=== PATIENT | male | born 1985 | race Caucasian/White ===

== ENCOUNTER 2017-12-08 18:21 | Emergency (ER) | payer OTHER ==
[~2017-12-08] VITALS: Ht 182.9 cm; Wt 65.8 kg
--- NOTE | ~2017-12-08 | EKG ---
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[facility] : 1985 Requested By: Olga Aguirre Order Number: [id number] MD: Agustín Harris Measurements Intervals [place] Rate: 97 P: 68 WY: 128 QRS: 81 QRSD: 87 T: 57 QT: 322 QTc: 409 Interpretive Statements Sinus rhythm ST elev, probable normal early repol pattern Compared to ECG 11/06/2017 00:58:37 No significant changes Electronically Signed On 12-09-2017 9:17:43 CDT by Agustín Harris [email or web address] <ELECTRONICALLY SIGNED> By: Agustín Harris MD, [facility] 12/09/17 0917 1840 1840 Agustín Harris MD, FACC /EPI
[~2017-12-08 18:21] MED LIST: ATIVAN0.5 MG PO; NOHOMEMEDICATIONS; ONDANSETRON HCL4 M2 PO; VENTOLIN HFA 1818 GM INH
[2017-12-08 18:26] VITALS: BP 155/105
[2017-12-08] MEDS ORDERED: ATIVAN0.5 MG PO (18:36)
== END 2017-12-08 18:59 | disposition home or self-care (01) ==
LOC: ER 18:21
DX: F41.0 Panic disorder [episodic paroxysmal anxiety] (principal); F17.210 Nicotine dependence, cigarettes, uncomplicated; Z76.0 Encounter for issue of repeat prescription

== ENCOUNTER 2019-03-12 19:54 | Emergency (ER) | payer OTHER ==
[~2019-03-12] VITALS: Ht 182.9 cm; Wt 68.0 kg
[2019-03-12] MEDS ORDERED: ATIVAN0.5 MG PO (20:17)
[2019-03-12 21:07] VITALS: BP 138/82
--- NOTE | 2019-03-13 08:06 | EKG ---
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 : 1985 Requested By: Breana Jacome Order Number: [id number] MD: Agustín Hraris Measurements Intervals [place] Rate: 102 P: 90 MT: 120 QRS: 85 QRSD: 87 T: -47 QT: 303 QTc: 395 Interpretive Statements Sinus tachycardia Nonspecific T abnormalities Compared to ECG 12/08/2017 18:40:09 Nonspecific change in the ST and T-wave segments Electronically Signed On 03-13-2019 8:06:15 CDT by Agustín Harris [email or web address] ��������������������������������������������� <ELECTRONICALLY SIGNED> ���������������������������������������� By: Agustín Harris MD, [facility] ��������������������������������������������� 03/13/19805 18 18 Agustín Harris MD, FACC /EPI
== END 2019-03-12 21:08 | disposition home or self-care (01) ==
LOC: ER 19:54
DX: F41.9 Anxiety disorder, unspecified (principal); F17.210 Nicotine dependence, cigarettes, uncomplicated

== ENCOUNTER 2019-10-01 21:17 | Emergency (ER) | payer OTHER ==
[~2019-10-01] VITALS: Ht 182.9 cm; Wt 68.0 kg
[2019-10-01 21:37] LABS: URINE BILIRUBIN NEGATIVE (Negative); URINE BLOOD NEGATIVE (Negative); URINE CLARITY CLEAR; URINE COLOR YELLOW; URINE GLUCOSE-RANDOM* NEGATIVE (Negative); URINE KETONES 1+ (Negative); URINE LEUKOCYTES-REFLEX NEGATIVE (Negative); URINE NITRITE-REFLEX NEGATIVE (Negative); URINE PROTEIN (DIPSTICK) NEGATIVE (Negative); URINE SPECIFIC GRAVITY <= 1.005 (1.005-1.035); URINE UROBILINOGEN 0.2 E.U./dl (0.2-1.0)
[2019-10-01 22:11] LABS: RDW 13.5 % (10.5-14.5)
[2019-10-01 22:13] LABS: HEMATOCRIT 53.2 % (42.0-52.0); HEMOGLOBIN 18.4 gm/dL (14.0-18.0); MCH 31.8 pg (26.0-34.0); MCHC 34.5 g/dL (28.0-37.0); MCV 92.1 fL (80.0-100.0); PLATELET COUNT 292 thou/uL (150-400); RBC 5.78 mil/uL (4.50-6.00); WBC 9.6 thou/uL (4.0-11.0)
[2019-10-01 22:19] LABS: CALCIUM 9.8 mg/dL (8.5-10.1); CREATININE 0.8 mg/dL (0.7-1.3); POTASSIUM 3.4 mmol/L (3.5-5.1)
[2019-10-01 22:23] LABS: PROTIME 10.1 Seconds (9.3-11.4)
[2019-10-01 22:25] LABS: ALBUMIN 4.3 g/dL (3.4-5.0); TOTAL BILIRUBIN 0.7 mg/dL (<0.1-1.0); TOTAL PROTEIN 8.4 g/dL (6.4-8.2)
[2019-10-01 22:44] VITALS: BP 141/88
[2019-10-01] MEDS ORDERED: OMEPRAZOLE 20 M20 M1 PO (22:49)
[2019-10-01 22:54] LABS: ABSOLUTE NEUTROPHILS 7.1 thou/uL (1.4-8.2)
[2019-10-01 22:55] LABS: ANISOCYTOSIS 1+
== END 2019-10-01 22:59 | disposition home or self-care (01) ==
LOC: ER 21:17
PROVIDERS: Physician Assistant
DX: F10.10 Alcohol abuse, uncomplicated (principal); R11.2 Nausea with vomiting, unspecified; R10.9 Unspecified abdominal pain; F17.210 Nicotine dependence, cigarettes, uncomplicated

== ENCOUNTER 2020-06-03 07:11 | Emergency (ER) | payer OTHER ==
[~2020-06-03] VITALS: Ht 182.9 cm; Wt 65.8 kg
[~2020-06-03 07:11] MED LIST changes: +OMEPRAZOLE 20 M20 M1 PO
[2020-06-03 08:50] VITALS: BP 159/92
== END 2020-06-03 09:04 | disposition home or self-care (01) ==
LOC: ER 07:11
DX: B34.9 Viral infection, unspecified (principal); H92.02 Otalgia, left ear; F41.9 Anxiety disorder, unspecified; F17.210 Nicotine dependence, cigarettes, uncomplicated; Z79.899 Other long term (current) drug therapy

== ENCOUNTER 2020-06-16 03:46 | Emergency (ER) | payer OTHER ==
[~2020-06-16] VITALS: Ht 182.9 cm; Wt 68.0 kg
[2020-06-16 03:49] VITALS: BP 148/90
[2020-06-16] MEDS ORDERED: TRAMADOL 50 MG50 MG PO (04:44)
[2020-06-16] MEDS ORDERED: CLINDAMYCIN HC300 MG PO (04:44)
== END 2020-06-16 05:04 | disposition home or self-care (01) ==
LOC: ER 03:46
DX: K05.10 Chronic gingivitis, plaque induced (principal); L81.8 Other specified disorders of pigmentation; K12.1 Other forms of stomatitis; F41.0 Panic disorder [episodic paroxysmal anxiety]; F17.210 Nicotine dependence, cigarettes, uncomplicated